=== PATIENT | female | born 1995 | race Caucasian/White ===

== ENCOUNTER 2021-01-30 08:19 | Outpatient (REF) | payer MEDICAID, SELFPAY ==
--- NOTE | ~2021-01-30 | US_ITS ---
EXAMINATION: US OBSTETRICAL ULTRASOUND CLINICAL INFORMATION: Irregular menses, size and dates. COMPARISON: None. LMP: 12/03/2020. Gestational age by maternal dates is 8 weeks 2 days. Estimated date of delivery by maternal dates is 09/09/2021. TECHNIQUE: Transabdominal imaging of pelvis is performed. FINDINGS: There is a single intrauterine gestational sac with visible yolk sac, embryo/fetus, and cardiac activity. There is a small subchorionic hemorrhage or hematoma. HR: 169 beats per minute. CRL (crown rump length): 2.07 cm corresponding to 8 weeks and 5 days). SHANTANU (estimated date of delivery): 09/06/2021 +/- 4 days. MATERNAL ADNEXA: The right maternal ovary measures 3.8 x 2.4 x 2.7 cm. It appears unremarkable. The left maternal ovary measures 2.9 x 1.5 x 2.1 cm. It appears unremarkable. There is no significant maternal adnexal mass. No maternal pelvic ascites. US/US OB <= 14 weeks fetus IMPRESSION: 1. Single intrauterine gestation with ultrasound gestational age of 8 weeks and 5 days +/- 4 days. 2. Estimated date of delivery is 09/06/2021 +/- 4 days. 3. No maternal adnexal mass or pelvic ascites. 4. There is a small subchorionic bleed measuring 1.0 cm in thickness.
== END 2021-01-30 08:20 | disposition home or self-care (01) ==
LOC: HO.US 08:19
PROVIDERS: Visit Provider Advanced Practice Midwife
DX: O26.841 Uterine size-date discrepancy, first trimester (principal); O26.891 Other specified pregnancy related conditions, first trimester; N92.6 Irregular menstruation, unspecified; Z3A.08 8 weeks gestation of pregnancy
CPT/HCPCS: 76801

== ENCOUNTER → 2021-02-23 10:08 | Outpatient (BNVA) | payer MEDICAID, SELFPAY | PROVIDERS: Visit Provider Advanced Practice Midwife | DX: Z13.89 Encounter for screening for other disorder (principal) | CPT/HCPCS: 99212 ==

== ENCOUNTER 2021-02-27 14:18 | Outpatient (REF) | payer OTHER, SELFPAY ==
--- NOTE | ~2021-02-27 | US_ITS ---
EXAMINATION: OBSTETRICAL ULTRASOUND, FIRST TRIMESTER HISTORY: 25-year-old at 12.2 weeks of gestation NT screening BMI 43.4 COMPARISON: 01/30/2021 TECHNIQUE: Real time transabdominal imaging with color and M-mode Doppler. FINDINGS: A single, live IUP CRL of 68 mm c/w 13.1wks is noted. Heart Rate: 150 beats per minute. Normal yolk sac seen. NT was 1.7.mm. NB Present The embryo appears sonographically wnl for this GA. Right ovary was within normal limits. The left ovary was not seen. GESTATIONAL AGE: 1. Established GA: 12.2 wks 2. GA from [facility]: 13.1 wks ESTIMATED DATE OF DELIVERY: 1. Established SHANTANU: 09/09/2021 2. SHANTANU from [facility]: 09/03/2021 US/US OB 1T nuc measure IMPRESSION: 1. A single live IUP 2. Size equals dates 3. NT of 1.7 mm MFM Consultation: I reviewed the ultrasound findings along with significance of NT measurement. The NT of less than 3mm is generally reassuring. However, the sensitivity for T21 detection is only 60%. I reviewed the availability of serum aneuploidy screening which includes cell-free DNA and placental protein based tests. I discussed the sensitivity, false-positive rate, and other limitations associated with each test. I also reviewed the availability of invasive diagnostic tests that are associated small but definite risk of miscarriage. We also reviewed the differences between screening tests and diagnostic tests. After our discussion, she opted for the First trimester screening that is based on cell-free DNA or non-invasive testing (NIPT). The result will be faxed to your office in approximately 7 days. A follow up at 18 weeks for survey has been scheduled. Thank you very much for this referral. Total time 30 minutes. The time spent was devoted to counseling the patient about the disease and diagnosis, coordinating care including reviewing her records, pertinent lab data and studies, as well as discussing diagnostic evaluation and workup, plan therapeutic interventions and future disposition of care. This includes any additional research needed to obtain further information in formulating the plan of care of this patient. This note was generated with a voice recognition program. Please excuse any errors which may have been overlooked during my review of this note. Sometimes these errors may affect the content or meaning of a given sentence.
== END 2021-02-27 14:19 | disposition home or self-care (01) ==
LOC: HO.US 14:18
PROVIDERS: Visit Provider Advanced Practice Midwife
DX: Z36.82 Encounter for antenatal screening for nuchal translucency (principal); Z34.90 Encounter for supervision of normal pregnancy, unspecified, unspecified trimester
CPT/HCPCS: 76813

== ENCOUNTER 2021-02-28 07:57 | Outpatient (REF) | payer OTHER, SELFPAY ==
[2021-02-28 09:09] LABS: MANUAL DIFF FLAG NO
[2021-02-28 09:17] LABS: Basophils Percent Auto 0.3 % (0-2); Eosinophils Absolute Auto 0.2 X10*3/uL (0.0-0.4); Eosinophils Percent Auto 1.8 % (0-4); Hematocrit 36.3 % (37-47); Hemoglobin 12.3 g/dl (12.0-16.0); Imm Gran Abs Auto 0.02 X10*3/uL (0.00-0.03); Imm Gran Pct Auto 0.2 % (0.0-0.4); Lymphocytes Absolute Auto 3.1 X10*3/uL (1.2-4.9); Lymphocytes Percent Auto 34.7 % (20-40); Mean Corpuscular HGB Conc 33.9 g/dl (31.0-35.0); Mean Corpuscular Hemoglobin 29.1 pg (27.0-33.0); Monocytes Absolute Auto 0.6 X10*3/uL (0.1-1.2); Monocytes Percent Auto 6.8 % (2-11); Neutrophils Absolute Auto 4.9 X10*3/uL (2.0-8.3); Neutrophils Percent Auto 56.2 % (45-73); Platelet Count 196 X10*3/uL (160-400); Red Blood Count 4.22 X10*6/uL (4.20-5.50); Red Cell Distribution Width 13.3 % (11.0-16.0); White Blood Count 8.8 X10*3/uL (4.8-10.8)
[2021-02-28 09:51] LABS: Glucose Fasting 83 mg/dL (60-99)
[2021-02-28 09:59] LABS: HIV AB/AG Nonreactive (Nonreactive); HIV Num 1 0.05 S/CO (0.00-0.99); ~HepC Num1 0.07 S/CO (0.00-0.79); ~Hepatitis C Antibody Nonreactive (Nonreactive)
[2021-02-28 10:23] LABS: Amphetamine Screen Urine Not Detected (Not Detect); Barbiturates, Urine Not Detected (Not Detect); Benzodiazepines Screen Urine Not Detected (Not Detect); Cannabinoid Screen Urine Not Detected (Not Detect); Cocaine Screen Urine Not Detected (Not Detect); Opiate Screen Urine Not Detected (Not Detect); Phencyclidine Screen Urine Not Detected (Not Detect)
[2021-02-28 10:30] LABS: Glucose 1 Hour 83 mg/dL
[2021-02-28 13:10] LABS: HBsAGNum1 0.21 S/CO (0.00-0.99); Hepatitis B Surface Antigen Negative (Negative)
[2021-03-01 06:07] LABS: Varicella IgG Antibody <135.00 index
[2021-03-02 08:08] LABS: Syphilis Screen Nonreactive (Nonreactive)
== END 2021-02-28 07:58 | disposition home or self-care (01) ==
LOC: HO.LAB 07:57
PROVIDERS: Visit Provider Advanced Practice Midwife
DX: Z34.90 Encounter for supervision of normal pregnancy, unspecified, unspecified trimester (principal)
CPT/HCPCS: 80307; 82951; 85025; 86762; 86780; 86787; 86803; 86850; 86900; 86901; 87086; 87340; 87389

== ENCOUNTER 2021-03-10 13:55 | Outpatient (REF) | payer OTHER, SELFPAY ==
[2021-03-11 08:23] LABS: BV Int Neg Control Negative (Negative); BV Int Pos Control Positive (Positive)
[2021-03-11 08:53] LABS: CT PCR NOT DETECTED (Not Detect.); NG PCR NOT DETECTED (Not Detect.)
== END 2021-03-10 13:56 | disposition home or self-care (01) ==
LOC: HO.LAB 13:55
PROVIDERS: Visit Provider Advanced Practice Midwife
DX: O99.211 Obesity complicating pregnancy, first trimester (principal); Z3A.13 13 weeks gestation of pregnancy; Z11.3 Encounter for screening for infections with a predominantly sexual mode of transmission
CPT/HCPCS: 87480; 87491; 87510; 87591; 87660; 99212

== ENCOUNTER 2021-04-03 12:54 | Outpatient (REF) | payer OTHER, SELFPAY ==
--- NOTE | ~2021-04-03 | US_ITS ---
EXAMINATION: US OBSTETRICAL CLINICAL INFORMATION: 25-year-old at the 17.2 weeks of gestation Screening for anomaly COMPARISON: 02/27/2021 TECHNIQUE: Real-time transabdominal ultrasound was performed using C1-5 megahertz transducer. FINDINGS: A single, active, fetus is seen in breech presentation. The placenta is posterior without previa, and the amniotic fluid volume is wnl. MEASUREMENTS: 1. Biparietal Diameter: 3.8 cm; 17.5 wks 2. Occipital Frontal Diameter: 5.3 cm 3. Head Circumference: 15.1 cm; 18.1 wks 4. Abdominal Circumference: 12.7 cm; 18.2 wks 5. Femur Length: 2.9 cm; 18.6 wks 6. Humerus Length: 2.6 cm; 18.2 wks 7. Tibia Length: 2.4 cm; 18.4 wks 8. Ulna Length: 2.5 cm; 19.2 wks 9. Lateral ventricle: 0.6 cm 10. Cerebellum: 1.7 cm; 17.6 wks 11. Cisterna Magna: 0.3 cm 12. Nuchal Fold: 4.7 mm 13. Heart Rate: 146 beats per minute Rt ovary: normal Lt ovary: normal Cervical length 4.0 cm on T/A. GESTATIONAL AGE: 1. Established GA: 17.2 wks 2. GA from [facility]: 18.2 wks ESTIMATED DATE OF DELIVERY: 1. Established SHANTANU: 09/09/2021 2. SHANTANU from [facility]: 09/02/2021 ANATOMY: The views of the face and cardiac anatomy were suboptimal due to position. The visualized anatomy includes but not limited to: 1. Cranium: Normal 2. Intracranial anatomy: cavum septum pellucidi, lateral ventricles, choroid plexus, cerebellum, posterior fossa, third and fourth ventricles. 3. face: The views of the profile, nasal bone, lip/palate were suboptimal due to position. 4. Heart: LVOT, RVOT, situs, aortic and ductal arches and diaphragm were within normal limits. Remainder of the cardiac anatomy was suboptimally seen 5. Diaphragm: Normal 6. Abdominal wall: Normal 7. Cord Insertion: Normal 8. Spine: Cervical, thoracic, lumbar, sacral. 9. Stomach: Normal size and shape 10. Right Kidney: Normal 11. Left Kidney: Normal 12. 3 vessel cord: Normal 13. Upper extremity: Open hands, fifth digit. 14. Lower extremity: Tibia, fibula, bilateral feet. 15. Bladder: Normal 16. Genitalia: Female, patient aware. US/US OB /maternal detail IMPRESSION: 1. Single, living, intrauterine with appropriate biometry. 2. Suboptimal anatomy survey due to position. No abnormalities were seen in visualized anatomy. DISCUSSION: I reviewed today's ultrasound findings. We discussed the limitations of ultrasound in diagnosing aneuploidy and other congenital abnormalities. I reviewed the differences between screening test and diagnostic test. Amniocentesis was discussed and declined. She was informed that the baseline incidence of congenital abnormalities is approximately 3-5%. Not all these conditions are diagnosable in utero. RECOMMENDATIONS: 1. Follow-up in approximately 3 weeks (scheduled) Thank you for allowing me to participate in her care. Total time 20 minutes. The time spent was devoted to counseling the patient about the disease and diagnosis, coordinating care including reviewing her records, pertinent lab data and studies, as well as discussing diagnostic evaluation and workup, plan therapeutic interventions and future disposition of care. This includes any additional research needed to obtain further information in formulating the plan of care of this patient. This note was generated with a voice recognition program. Please excuse any errors which may have been overlooked during my review of this note. Sometimes these errors may affect the content or meaning of a given sentence.
== END 2021-04-03 12:55 | disposition home or self-care (01) ==
LOC: HO.US 12:54
PROVIDERS: Visit Provider Advanced Practice Midwife
DX: Z36.3 Encounter for antenatal screening for malformations (principal)
CPT/HCPCS: 76811

== ENCOUNTER → 2021-04-07 10:22 | Outpatient (BNVA) | payer OTHER, SELFPAY | PROVIDERS: Visit Provider Obstetrics & Gynecology | DX: O99.212 Obesity complicating pregnancy, second trimester (principal); E66.9 Obesity, unspecified; Z3A.17 17 weeks gestation of pregnancy | CPT/HCPCS: 81003; 99212 ==

== ENCOUNTER 2021-04-17 09:08 | Outpatient (REF) | payer OTHER, SELFPAY ==
--- NOTE | ~2021-04-17 | US_ITS ---
EXAMINATION: OBSTETRICAL ULTRASOUND, Follow up HISTORY: 25-year-old at the 19.2 weeks of gestation Follow-up anatomy COMPARISON: 04/03/2021 TECHNIQUE: Real time transabdominal imaging with color and M-mode Doppler. PRESENTATION: Transverse PLACENTA LOCATION: Posterior without previa AMNIOTIC FLUID: Normal MEASUREMENTS: 1. Biparietal Diameter: 4.4 cm; 19.3 wks 2. Head Circumference: 17.5 cm; 20.0 wks 3. Abdominal Circumference: 13.6 cm; 19.1 wks 4. Femur Length: 3.1 cm; 19.5 wks 5. Heart Rate: 139 beats per minute WEIGHT: Estimated weight is 288 grams (0 lbs 10 oz) -- 50 %. Normal views of lateral cerebral ventricle, profile, nose/lips, 4ch view, LVOT, RVOT, aortic and ductal arches, 3 vessel trachea view, gender. GESTATIONAL AGE: 1. Established GA: 19.2 wks 2. GA from [facility]: 19.4 wks ESTIMATED DATE OF DELIVERY: 1. Established SHANTANU: 09/09/2021 2. SHANTANU from [facility]: 09/07/2021 US/US OB follow up IMPRESSION: 1. A single fetus with appropriate interval growth. 2. Previously limited views of the anatomy were seen as listed above. No abnormalities were noted in visualized anatomy. 3. This completes the survey. I reviewed the limitations of ultrasound in diagnosing aneuploidy and other congenital abnormalities. Amniocentesis was again reviewed and she declined. She was informed that the baseline instance of congenital abnormalities and defects in the general population is approximately 3-5%. Not all these conditions are diagnosable in utero. RECOMMENDATIONS: 1. f/u PRN Thank you very much for this referral. Total time 20 minutes. The time spent was devoted to counseling the patient about the disease and diagnosis, coordinating care including reviewing her records, pertinent lab data and studies, as well as discussing diagnostic evaluation and workup, plan therapeutic interventions and future disposition of care. This includes any additional research needed to obtain further information in formulating the plan of care of this patient. This note was generated with a voice recognition program. Please excuse any errors which may have been overlooked during my review of this note. Sometimes these errors may affect the content or meaning of a given sentence.
== END 2021-04-17 09:09 | disposition home or self-care (01) ==
LOC: HO.US 09:08
PROVIDERS: PCP Internal Medicine; Visit Provider Advanced Practice Midwife
DX: Z36.3 Encounter for antenatal screening for malformations (principal)
CPT/HCPCS: 76816

== ENCOUNTER → 2021-05-05 09:33 | Outpatient (BNVA) | payer OTHER, SELFPAY | PROVIDERS: PCP Internal Medicine; Visit Provider Advanced Practice Midwife | DX: O99.212 Obesity complicating pregnancy, second trimester (principal); E66.01 Morbid (severe) obesity due to excess calories; Z3A.21 21 weeks gestation of pregnancy | CPT/HCPCS: 81003; 99212 ==

== ENCOUNTER → 2021-06-02 10:19 | Outpatient (BNVA) | payer OTHER, SELFPAY | PROVIDERS: Visit Provider Advanced Practice Midwife | DX: O99.212 Obesity complicating pregnancy, second trimester (principal); E66.01 Morbid (severe) obesity due to excess calories; Z3A.25 25 weeks gestation of pregnancy | CPT/HCPCS: 81003; 99212 ==

== ENCOUNTER 2021-06-30 08:00 | Outpatient (REF) | payer OTHER, SELFPAY ==
[2021-06-30 09:55] LABS: Hematocrit 34.7 % (37-47); Hemoglobin 11.3 g/dl (12.0-16.0); Mean Corpuscular HGB Conc 32.6 g/dl (31.0-35.0); Mean Corpuscular Hemoglobin 29.2 pg (27.0-33.0); Mean Corpuscular Volume 89.7 fL (80-98); Mean Platelet Volume 11.2 fL (9.4-12.3); Platelet Count 253 X10*3/uL (160-400); Red Blood Count 3.87 X10*6/uL (4.20-5.50); Red Cell Distribution Width 12.5 % (11.0-16.0); White Blood Count 10.3 X10*3/uL (4.8-10.8)
[2021-06-30 10:09] LABS: Glucose 1 Hour PP 50gm Dose 102 mg/dL (60-140)
[2021-07-01 09:10] LABS: Syphilis Screen Nonreactive (Nonreactive)
== END 2021-06-30 08:01 | disposition home or self-care (01) ==
LOC: HO.LAB 08:00
PROVIDERS: Visit Provider Advanced Practice Midwife
DX: O99.212 Obesity complicating pregnancy, second trimester (principal)
CPT/HCPCS: 36415; 85027; 86780

== ENCOUNTER → 2021-07-08 14:58 | Outpatient (BNVA) | payer OTHER, SELFPAY | PROVIDERS: Visit Provider Advanced Practice Midwife | DX: O99.213 Obesity complicating pregnancy, third trimester (principal); E66.01 Morbid (severe) obesity due to excess calories; Z3A.31 31 weeks gestation of pregnancy | CPT/HCPCS: 81003; 99212 ==

== ENCOUNTER → 2021-07-21 08:03 | Outpatient (BNVA) | payer OTHER, SELFPAY | PROVIDERS: Visit Provider Advanced Practice Midwife | DX: O99.213 Obesity complicating pregnancy, third trimester (principal); E66.01 Morbid (severe) obesity due to excess calories; O36.63X0 Maternal care for excessive fetal growth, third trimester, not applicable or unspecified; Z3A.32 32 weeks gestation of pregnancy | CPT/HCPCS: 81003; 90471; 90715; 99212 ==

== ENCOUNTER 2021-07-31 08:08 | Outpatient (REF) | payer OTHER, SELFPAY ==
--- NOTE | ~2021-07-31 | US_ITS ---
EXAMINATION: OBSTETRICAL ULTRASOUND, Follow up HISTORY: 26-year-old at the 34.2 weeks of gestation Size date discrepancy COMPARISON: 04/17/2021 TECHNIQUE: Real time transabdominal imaging with color and M-mode Doppler. PRESENTATION: Vertex PLACENTA LOCATION: Posterior without previa AMNIOTIC FLUID: TADEO 12.2 cm MEASUREMENTS: 1. Biparietal Diameter: 8.1 cm; 32.5 wks 2. Head Circumference: 32.0 cm; 36.1 wks 3. Abdominal Circumference: 31.1 cm; 35.1 wks 4. Femur Length: 6.7 cm; 34.3 wks 5. Heart Rate: 136 beats per minute WEIGHT: EFW: 2498 grams (5 lbs 8 oz) -- 58 %. BIOPHYSICAL PROFILE: Motion: 2 Tone: 2 Breathin Amniotic Fluid: 2 Total score: 8/8 GESTATIONAL AGE: 1. Established GA: 34.2 wks 2. GA from [facility]: 34.5 wks ESTIMATED DATE OF DELIVERY: 1. Established SHANTANU: 09/09/2021 2. SHANTANU from [facility]: 09/06/2021 US/US OB follow up IMPRESSION: 1. A single active fetus is in vertex presentation 2. Size equals dates 3. Normal BPP score and TADEO Thank you very much for this referral. This note was generated with a voice recognition program. Please excuse any errors which may have been overlooked during my review of this note. Sometimes these errors may affect the content or meaning of a given sentence.
== END 2021-07-31 08:09 | disposition home or self-care (01) ==
LOC: HO.US 08:08
PROVIDERS: Visit Provider Advanced Practice Midwife
DX: O99.210 Obesity complicating pregnancy, unspecified trimester (principal); E66.01 Morbid (severe) obesity due to excess calories
CPT/HCPCS: 76816

== ENCOUNTER → 2021-08-11 08:05 | Outpatient (BNVA) | payer OTHER, SELFPAY | PROVIDERS: Visit Provider Advanced Practice Midwife | DX: O36.8330 Maternal care for abnormalities of the fetal heart rate or rhythm, third trimester, not applicable or unspecified (principal); Z3A.35 35 weeks gestation of pregnancy | CPT/HCPCS: 59025; 81003; 99212 ==

== ENCOUNTER 2021-08-11 09:26 | Outpatient (REF) | payer OTHER, SELFPAY ==
--- NOTE | ~2021-08-11 | US_ITS ---
EXAMINATION: US OBSTETRICAL (BIOPHYSICAL PROFILE) CLINICAL INFORMATION: Maternal careful or abnormality of the heart COMPARISON: Previous exams most recent 07/31/2021 TECHNIQUE: Ultrasound of the pelvis is performed. Biophysical profile is performed over 30 minutes with assessment of breathing, gross body movement, tone, and qualitative amniotic fluid volume. Each matrix is scored 0 or 2, depending if the metric is present. Maximum total score possible is 8. Examination is not intended to assess for anomalies. FINDINGS: POSITION: Cephalic PLACENTA: Posterior. Grade 2. AMNIOTIC FLUID INDEX: 14.2 cm CARDIAC ACTIVITY: 132 beats per minute BIOPHYSICAL PROFILE: Motion: 2 Tone: 2 Breathin Amniotic Fluid: 2 Total score: 8 US/US OB biophysical profile IMPRESSION: 1. Single intrauterine gestation in cephalic position with posterior placenta. 2. Total biophysical score is 8 (scale 0-8). 3. Amniotic fluid index 14.2 cm. 4. cardiac activity 132 beats per minute.
== END 2021-08-11 09:27 | disposition home or self-care (01) ==
LOC: HO.US 09:26
PROVIDERS: Visit Provider Advanced Practice Midwife
DX: O36.63X0 Maternal care for excessive fetal growth, third trimester, not applicable or unspecified (principal)
CPT/HCPCS: 59025; 76819; 81003; 99212

== ENCOUNTER 2021-08-14 09:31 | Outpatient (REF) | payer OTHER, SELFPAY ==
--- NOTE | ~2021-08-14 | US_ITS ---
EXAMINATION: US OBSTETRICAL (BIOPHYSICAL PROFILE) CLINICAL INFORMATION: A 26-year-old at the 36.2 weeks of gestation High BMI Size date discrepancy COMPARISON: 08/11/2021 TECHNIQUE: Biophysical profile is performed over 30 minutes with assessment of breathing, gross body movement, tone, and qualitative amniotic fluid volume. FINDINGS: POSITION: Cephalic PLACENTA: Posterior without previa AMNIOTIC FLUID INDEX: 7.9 cm, DVP: 5.7 cm CARDIAC ACTIVITY: 132 beats per minute BIOPHYSICAL PROFILE: Motion: 2 Tone: 2 Breathin Amniotic Fluid: 2 The total biophysical score is 8/8 US/US OB biophysical profile IMPRESSION: 1. Single intrauterine gestation in vertex position. 2. Reassuring BPP and TADEO Thank you for allowing me to participate in her care. This note was generated with a voice recognition program. Please excuse any errors which may have been overlooked during my review of this note. Sometimes these errors may affect the content or meaning of a given sentence.
== END 2021-08-14 09:32 | disposition home or self-care (01) ==
LOC: HO.US 09:31
PROVIDERS: Visit Provider Advanced Practice Midwife
DX: O36.63X0 Maternal care for excessive fetal growth, third trimester, not applicable or unspecified (principal); O99.213 Obesity complicating pregnancy, third trimester; E66.01 Morbid (severe) obesity due to excess calories; Z3A.35 35 weeks gestation of pregnancy
CPT/HCPCS: 76819

== ENCOUNTER 2021-08-18 08:42 | Outpatient (REF) | payer OTHER, SELFPAY ==
[2021-08-18 15:00] LABS: CT PCR NOT DETECTED (Not Detect.); NG PCR NOT DETECTED (Not Detect.)
== END 2021-08-18 08:43 | disposition home or self-care (01) ==
LOC: HO.LAB 08:42
PROVIDERS: Visit Provider Obstetrics & Gynecology
DX: O99.213 Obesity complicating pregnancy, third trimester (principal); E66.01 Morbid (severe) obesity due to excess calories; Z3A.36 36 weeks gestation of pregnancy
CPT/HCPCS: 59025; 87081; 87491; 87591; 99212

== ENCOUNTER 2021-08-21 09:44 | Outpatient (REF) | payer OTHER, SELFPAY ==
--- NOTE | ~2021-08-21 | US_ITS ---
EXAMINATION: OBSTETRICAL ULTRASOUND, Follow up HISTORY: A 26-year-old at the 37.2 weeks of gestation Size greater than dates High BMI COMPARISON: 08/14/2021 TECHNIQUE: Real time transabdominal imaging with color and M-mode Doppler. PRESENTATION: Vertex PLACENTA LOCATION: Posterior without previa AMNIOTIC FLUID: TADEO 9.5 cm MEASUREMENTS: 1. Biparietal Diameter: 8.6 cm; 34.4 wks 2. Head Circumference: 33.7 cm; 38.5 wks 3. Abdominal Circumference: 32.9 cm; 37.0 wks 4. Femur Length: 9.1 cm; 36.3 wks 5. Heart Rate: 127 beats per minute WEIGHT: EFW: 3000 grams (6 lbs 10 oz) -- 41 %. BIOPHYSICAL PROFILE: Motion: 2 Tone: 2 Breathin Amniotic Fluid: 2 Total score: 8/8 GESTATIONAL AGE: 1. Established GA: 37.2 wks 2. GA from [facility]: 36.5 wks ESTIMATED DATE OF DELIVERY: 1. Established SHANTANU: 09/09/2021 2. SHANTANU from [facility]: 09/13/2021 US/US OB follow up IMPRESSION: 1. A single active fetus is in vertex presentation 2. Size equals dates 3. Reassuring biophysical profile Thank you very much for this referral. This note was generated with a voice recognition program. Please excuse any errors which may have been overlooked during my review of this note. Sometimes these errors may affect the content or meaning of a given sentence.
== END 2021-08-21 09:45 | disposition home or self-care (01) ==
LOC: HO.US 09:44
PROVIDERS: Visit Provider Advanced Practice Midwife
DX: O36.63X0 Maternal care for excessive fetal growth, third trimester, not applicable or unspecified (principal); O99.213 Obesity complicating pregnancy, third trimester; E66.01 Morbid (severe) obesity due to excess calories; Z3A.37 37 weeks gestation of pregnancy
CPT/HCPCS: 59025; 76816; 81003; 99212

== ENCOUNTER → 2021-08-25 08:35 | Outpatient (BNVA) | payer OTHER, SELFPAY | PROVIDERS: Visit Provider Obstetrics & Gynecology | DX: Z34.83 Encounter for supervision of other normal pregnancy, third trimester (principal); Z3A.37 37 weeks gestation of pregnancy | CPT/HCPCS: 59025; 99212 ==

== ENCOUNTER → 2021-10-20 09:33 | Outpatient (BNVA) | payer OTHER, SELFPAY | PROVIDERS: Visit Provider Obstetrics & Gynecology | DX: Z39.2 Encounter for routine postpartum follow-up (principal); Z30.09 Encounter for other general counseling and advice on contraception | CPT/HCPCS: 99212 ==

== ENCOUNTER → 2021-10-21 11:34 | Outpatient (BNVA) | payer OTHER, SELFPAY | PROVIDERS: Visit Provider Obstetrics & Gynecology ==

== ENCOUNTER → 2022-01-04 08:42 | Outpatient (BNVA) | payer OTHER, SELFPAY | PROVIDERS: Visit Provider Obstetrics & Gynecology | DX: Z30.09 Encounter for other general counseling and advice on contraception (principal) | CPT/HCPCS: 11981; J7307 ==

== ENCOUNTER 2023-04-26 10:07 | Outpatient (REF) | payer OTHER, SELFPAY | END 2023-04-26 10:08 | disposition home or self-care (01) | LOC: HO.LNP 10:07 | PROVIDERS: Visit Provider Advanced Practice Midwife | DX: Z01.419 Encounter for gynecological examination (general) (routine) without abnormal findings (principal) | CPT/HCPCS: 88142 ==

== ENCOUNTER 2023-04-26 11:54 | Outpatient (REF) | payer OTHER, SELFPAY ==
[2023-04-26 12:34] LABS: Hematocrit 41.3 % (37.0-47.0); Hemoglobin 13.5 g/dl (12.0-16.0); Mean Corpuscular HGB Conc 32.7 g/dl (31.0-35.0); Mean Corpuscular Hemoglobin 29.3 pg (27.0-33.0); Mean Corpuscular Volume 89.8 fL (80.0-98.0); Mean Platelet Volume 11.6 fL (9.4-12.3); Platelet Count 244 X10*3/uL (160-400); Red Cell Distribution Width 12.7 % (11.0-16.0); White Blood Count 11.3 X10*3/uL (4.8-10.8)
[2023-04-26 13:01] LABS: Glucose Random 89 mg/dL (60-115)
[2023-04-26 13:22] LABS: Thyroid Stimulating Hormone 2.65 uIU/mL (0.32-4.0)
[2023-04-26 14:12] LABS: CT PCR NOT DETECTED (Not Detect.); NG PCR NOT DETECTED (Not Detect.)
[2023-04-27 04:51] LABS: Syphilis Screen Nonreactive (Nonreactive)
[2023-04-27 05:07] LABS: HBsAGNum1 0.37 S/CO (0.00-0.99); HIV AB/AG Nonreactive (Nonreactive); HIV Num 1 0.05 S/CO (0.00-0.99); Hepatitis B Surface Antigen Negative (Negative); ~HepC Num1 0.11 S/CO (0.00-0.79); ~Hepatitis C Antibody Nonreactive (Nonreactive)
[2023-04-27 12:37] LABS: BV Int Neg Control Negative (Negative); BV Int Pos Control Positive (Positive)
== END 2023-04-26 11:55 | disposition home or self-care (01) ==
LOC: HO.LAB 11:54
PROVIDERS: Visit Provider Advanced Practice Midwife
DX: Z11.3 Encounter for screening for infections with a predominantly sexual mode of transmission (principal); Z11.4 Encounter for screening for human immunodeficiency virus [HIV]; R60.0 Localized edema; E66.01 Morbid (severe) obesity due to excess calories; I10 Essential (primary) hypertension
CPT/HCPCS: 0353U; 82947; 84443; 85027; 86780; 86803; 87340; 87389; 87480; 87510; 87660

== ENCOUNTER → 2023-05-17 12:52 | Outpatient (BNVA) | payer OTHER, SELFPAY | PROVIDERS: Visit Provider Physician Assistant Surgical ==

== ENCOUNTER 2023-06-21 09:35 | Outpatient (REF) | payer OTHER, SELFPAY ==
[2023-06-24 10:12] LABS: H Pylori Breath Test Positive (Negative)
== END 2023-06-21 09:36 | disposition home or self-care (01) ==
LOC: HO.LNP 09:35
PROVIDERS: Visit Provider Physician Assistant Surgical
DX: E66.01 Morbid (severe) obesity due to excess calories (principal); R06.83 Snoring; Z11.0 Encounter for screening for intestinal infectious diseases; Z68.41 Body mass index [BMI] 40.0-44.9, adult
CPT/HCPCS: 83013; 99202; 99211

== ENCOUNTER 2023-06-21 09:35 | Outpatient (AMB) | payer OTHER, SELFPAY ==
--- NOTE | 2023-06-21 09:51 | MHC.OFFVISWM ---
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 She heard about our program from her WOOD MILLING MACHINE OPERATOR. Her goal is to lose weight and achieve a healthy lifestyle as well as to improve, if not resolve, obesity related medical conditions, including possible sleep apnea. She reports first being concerned about her weight after her youngest child, about two years ago, highest weight to date was 268. Current weight is 268.4 with a BMI of 43.3. She has tried multiple methods of weight loss including fad diets without permanent results. She lives with her daughters and spouse. She doies not currently work. She wakes at:?7 am, and goes to bed at?9 pm. Dinner is at 730 pm. Breakfast: yogurt and fruit AM snack: skip or granola bar Lunch: skip PM snack: stew or chicken, meat rice Dinner: cereal w milk After dinner: skip Other snacks: none Liquids: 80 oz water, no soda or juice Alcohol/marijuana/tobacco intake: none Exercise: outside walking, stationary bike at home, willing to join [employer] GERD score: 0 LINDA score: 1 ESS score: 18 QOL score: 88 [facility] Medical History Large for dates complicating in third trimester, antepartum Variable heart rate decelerations, antepartum Family History Mother No problems noted. Father No problems noted. Social History Household Members: Spouse and Children Alcohol intake: never Patient Tobacco Use Status: Never used Tobacco Agree to transfusion: Yes Female Reproductive History Menstrual Age of Menarche: 10 Review of Systems Const All systems reviewed & are unremarkable except as noted in HPI and below Physical Exam Const General: cooperative, healthy appearing and no acute distress Orientation/consciousness: patient oriented x3 HEENT Head: Yes normal to inspection Ears: hearing grossly normal bilaterally General nose exam: Normal external nose present Face and sinus: Yes normal facial exam Eyes General: appearance normal, both eyes and all related structures Resp Effort & Inspection: normal respiratory effort Auscultation: clear to auscultation bilaterally Cardio Rate: regular rate Rhythm: regular rhythm Heart sounds: S1 normal heart sound present and S2 normal heart sound present GI Inspection: Yes normal to inspection, No distended and Yes obesity Palpation (GI): Soft to palpation, nontender and no guarding Auscultation: normal bowel sounds Skin General skin exam: no rashes or lesions noted Neuro General: patient oriented x3 Extrem General: No edema Psych Appearance: grossly normal Mental Status: mental status grossly normal Speech and movement: Normal speech and movement present Affect: normal affect Attitude: cooperative Assessment & Plan Assessment & Plan (1) Morbid obesity: Code(s): E66.01 - Morbid (severe) obesity due to excess calories Plan: This is a?28 yo female who will start our SWL program to prepare for bariatric surgery.? Blood work, h pylori , CXR, ECG, Abd US and UGI have been ordered. She is being scheduled for RD and BH initial consultations. She will start SWL classes and watch the first three videos before her next appointment. ? Adequate sleep of 7-8 hours per night discussed, awakening at 7 am and going to bed around 9 pm ? You already have a body composition scale so be sure and check weight weekly. The best time to do this is first thing in the morning after going to the bathroom. 1. Nutritional counseling: Be sure to careful read the number of scoops per shake Start with 3 Premier Protein shakes ([employer], [employer], [employer]), (1 scoop in 8 oz low fat unsweetened almond milk or water each) First shake at 8am-10am, Second shake at 11am-1pm 1 protein bar (Zone Perfect bars at [employer], [facility], or [employer]) at 2pm-4pm. Another shake with 1 scoop in 8 oz unsweetened almond milk at 5pm-7pm. Dinner at 7pm (8 forks of protein and 8 forks of salad/vegetables). Meal to include lean meat (beef, fish, pork, turkey, chicken), cooked vegetables or a salad with olive oil and/or fruits (berries, pears, apples, kiwi). Avoid salt, breads, potatoes, rice, pasta, desserts. Another 1/2 bar (zone perfect) at 8pm-9pm. Try to drink 64 oz of water daily and avoid soda and juices. ?2. Each shake would be drunk slowly, like coffee in a period of 2 hours. ?3. Cut each bar in 4 pieces and eat each piece in 30 min ?to make each bar last 2 hours. ?4. I emphasized the importance of measuring accurately the food portion and measure it carefully when serving the food on the plate ?5. The meal portions include 8 full-size forks of meat and 8 full-size forks of salad. You always eat the meat portion but you can replace up to half of the forks of salad/vegetables with rice, potatoes or pasta, or a fruit ?if you like. The less you do it the better weight loss will be. ?6. One full-size fork is what can be scooped on the fork without falling aside and not what can be bit with the fork. Use regular forks like those you find in a typical restaurant. ?7.? Please send me weight measurements as soon as possible and then once a week. Always include your diet and exercise plan. Alternatively come weekly at the office for weight checks and send me the measurements. ?8. Exercise counseling: Begin by watching a stretching for beginners video. Start slowly and begin to stretch your muscles. You should do this before and after each exercise session to prevent injury. Please join [facility] gym. Ask the transportation solutions manager or one of the trainers how to use the machines if you are unfamiliar with them. Start elliptical with a resistance of 2. Increase resistance by 1 every 3 min to your most comfortable resistance with a max resistance of 8. Reduce the resistance by 1 every 3 minutes back down to 2 and repeat cycles for 300 calories. Alternatively, start treadmill with a speed of 3.0 and incline of 0, increasing incline by 1 every 3 minutes to the highest comfortable level (max 6 for now) then decrease in the same fashion. Repeat process to a goal of 300 calories. Goal of 2000 calories burned or more weekly. You may also consider use of the stationary bike at your house if it can track your calories burned. The easiest would be to chose the fat-burn or interval training program on the machine and do this until you reach the 300 calorie goal. Alternatively, you can manually adjust the resistance in a similar fashion as mentioned above, (resistance of 2-8 with a goal speed of 12 mph). Tracking calories is essential. 9. Alternatively start walking outside daily, tracking calories with a goal of 300 calories per day, daily. You can download the shari InferX which can track your time, distance and calories while walking outside. You press start in the shari when you start and then stop when you are finished. 10.? It is important to avoid for at least 18 months postoperatively and it has been discussed at the information session 11. Please get labs, EKG and chest X-Ray within 1 week. 12. Discussed and answered all questions regarding?obtained consent to participate in the [facility]?Registry. 13. Please follow the diet plan exactly, without any change. If you do not like something about the plan or you feel hungry, you need to communicate with me so I can help you revise the plan. You should not change the plan yourself. Text me at [phone] 14. Goal is to lose at least 12 pounds in the first month 15. Goal is to lose 10% of your weight before surgery, which is about 27 lbs. Ultimate weight goal: 241 lbs before surgery Patient is morbidly obese and is not considered stable at this time.?I spent a total of 70 minutes reviewing/updating records, examining the patient and counseling the patient on weight management as detailed above. (2) Snoring: Code(s): R06.83 - Snoring Plan: ESS 18, check home sleep study to r/o ALEXANDER Orders: Orders Vitamin B12 and Folate Today E66.01 - Morbid (severe) obesity due to excess calories, R06.83 - Snoring Comprehensive Met. Panel Today E66.01 - Morbid (severe) obesity due to excess calories, R06.83 - Snoring C Reactive Protein Today E66.01 - Morbid (severe) obesity due to excess calories, R06.83 - Snoring Ferritin Today E66.01 - Morbid (severe) obesity due to excess calories, R06.83 - Snoring Hemoglobin A1c Today E66.01 - Morbid (severe) obesity due to excess calories, R06.83 - Snoring Insulin Today E66.01 - Morbid (severe) obesity due to excess calories, R06.83 - Snoring IRON PROFILE Today E66.01 - Morbid (severe) obesity due to excess calories, R06.83 - Snoring Lipid Panel Today E66.01 - Morbid (severe) obesity due to excess calories, R06.83 - Snoring PTHI Today E66.01 - Morbid (severe) obesity due to excess calories, R06.83 - Snoring TSH reflex Free T4 Today E66.01 - Morbid (severe) obesity due to excess calories, R06.83 - Snoring Vitamin A Today E66.01 - Morbid (severe) obesity due to excess calories, R06.83 - Snoring Vitamin B1 Today E66.01 - Morbid (severe) obesity due to excess calories, R06.83 - Snoring Vitamin D 25-OH Total Today E66.01 - Morbid (severe) obesity due to excess calories, R06.83 - Snoring Zinc Today E66.01 - Morbid (severe) obesity due to excess calories, R06.83 - Snoring ECG 12 lead EKG Today E66.01 - Morbid (severe) obesity due to excess calories, R06.83 - Snoring FL upper GI w air Today E66.01 - Morbid (severe) obesity due to excess calories, R06.83 - Snoring Complete Blood Count Auto Diff Today E66.01 - Morbid (severe) obesity due to excess calories, R06.83 - Snoring RT home sleep study Today E66.01 - Morbid (severe) obesity due to excess calories, R06.83 - Snoring H Pylori Breath Test Today E66.01 - Morbid (severe) obesity due to excess calories, R06.83 - Snoring US abdomen comp w elastography Today E66.01 - Morbid (severe) obesity due to excess calories, R06.83 - Snoring XR chest 2V Today E66.01 - Morbid (severe) obesity due to excess calories, R06.83 - Snoring Referrals Behavioral Health Referral E66.01 - Morbid (severe) obesity due to excess calories, R06.83 - Snoring Nutrition/Dietitian Referral E66.01 - Morbid (severe) obesity due to excess calories, R06.83 - Snoring Coding Level of Care Code New Pt Level 5 (27447) Diagnoses Morbid obesity E66.01 Snoring R06.83 Time Spent (min) 70
[2023-06-21 10:00] VITALS: BP 119/67; PULSE 90; TEMP 35.9; O2SAT 97; BMI 43.3
== END 2023-06-21 10:32 | disposition home or self-care (01) ==
PROVIDERS: Visit Provider Physician Assistant Surgical
DX: E66.01 Morbid (severe) obesity due to excess calories (principal); Z68.41 Body mass index [BMI] 40.0-44.9, adult; R06.83 Snoring
CPT/HCPCS: 99205

== ENCOUNTER 2023-06-28 12:20 | Outpatient (REF) | payer OTHER, SELFPAY ==
--- NOTE | ~2023-06-28 | XR_ITS ---
EXAMINATION: XR CHEST 2 VIEWS CLINICAL INFORMATION: Morbid obesity. COMPARISON: None. TECHNIQUE: Frontal and lateral views of the chest were obtained. FINDINGS: The heart, great vessels, pulmonary vasculature and mediastinum are normal. The lungs show no focal infiltrate, effusion or pneumothorax. There is no acute osseous abnormality. XR/XR chest 2V IMPRESSION: No active cardiopulmonary disease.
--- NOTE | 2023-06-28 12:26 | ECG_ITS ---
Test Reason : E66.01 Blood Pressure : / mmHG Vent. Rate : 067 BPM Atrial Rate : 067 BPM P-R Int : 144 ms QRS Dur : 082 ms QT Int : 404 ms P-R-T Axes : 025 036 053 degrees QTc Int : 426 ms Normal sinus rhythm Normal ECG No previous ECGs available Referred By: Rico Lopes Electronically Signed By:Oc Perez
[2023-06-28 12:35] LABS: MANUAL DIFF FLAG NO
[2023-06-28 12:48] LABS: Basophils Absolute Auto 0.1 X10*3/uL (0.0-0.2); Basophils Percent Auto 0.5 % (0-2); Eosinophils Absolute Auto 0.2 X10*3/uL (0.0-0.4); Eosinophils Percent Auto 2.3 % (0-4); Hematocrit 41.2 % (37.0-47.0); Hemoglobin 13.7 g/dl (12.0-16.0); Imm Gran Abs Auto 0.02 X10*3/uL (0.00-0.03); Imm Gran Pct Auto 0.2 % (0.0-0.4); Lymphocytes Absolute Auto 4.1 X10*3/uL (1.2-4.9); Lymphocytes Percent Auto 39.9 % (20-40); Mean Corpuscular HGB Conc 33.3 g/dl (31.0-35.0); Mean Corpuscular Hemoglobin 29.5 pg (27.0-33.0); Mean Corpuscular Volume 88.6 fL (80.0-98.0); Mean Platelet Volume 11.7 fL (9.4-12.3); Monocytes Absolute Auto 0.5 X10*3/uL (0.1-1.2); Monocytes Percent Auto 4.6 % (2-11); Neutrophils Absolute Auto 5.3 x10*3/uL (2.0-8.3); Neutrophils Percent Auto 52.5 % (45-73); Platelet Count 240 X10*3/uL (160-400); Red Blood Count 4.65 X10*6/uL (4.20-5.50); Red Cell Distribution Width 12.9 % (11.0-16.0); White Blood Count 10.2 X10*3/uL (4.8-10.8)
[2023-06-28 13:21] LABS: Estimated Average Glucose 103 mg/dL; Hemoglobin A1c % 5.2 %
[2023-06-28 13:22] LABS: Alanine Aminotransferase 11 U/L (0-31); Albumin Level 4.1 g/dL (3.5-5.0); Alkaline Phosphatase 84 U/L (39-117); Anion Gap 10 (12-20); Aspartate Amino Transferase 13 U/L (5-31); Bilirubin Total 0.4 mg/dL (0.0-1.0); Blood Urea Nitrogen 13 mg/dL (9-16); C Reactive Protein 1.14 mg/dL (< or = 0.50); Carbon Dioxide 27 mmol/L (22-29); Chloride 108 mmol/L (96-108); Cholesterol 133 mg/dL; Estimated Glomerular Filt Rate > 60; Glucose Random 92 mg/dL (60-115); HDL Cholesterol 40 mg/dL; Iron 75 mcg/dL (30-160); LDL Cholesterol Calculated 86 mg/dl; Percent Iron Saturation 28 % (15-50); Potassium 4.1 mmol/L (3.3-5.1); Sodium 141 mmol/L (135-145); Total Iron Binding Capacity 272 mcg/dL (228-428); Total Protein 7.4 g/dL (6.5-8.0); Triglycerides 36 mg/dL; Unsaturated Iron Binding 197 ug/dL
[2023-06-28 13:54] LABS: Folate 12.4 ng/mL (> or = 4.0); Vitamin B12 362 pg/mL (200-900)
[2023-06-28 14:09] LABS: Ferritin 61 ng/mL (10-122); Insulin 12 uU/mL (2-29); TSH reflex Free T4 2.37 uIU/mL (0.32-4.0); Vitamin D 25-OH Total 14.7 ng/mL (>30)
[2023-06-30 22:09] LABS: Calcium (PTHI) 9.1 mg/dL (8.6-10.2); PTHI 71 pg/mL (16-77)
[2023-07-01 17:28] LABS: Zinc 80 mcg/dL (60-130)
[2023-07-04 05:23] LABS: Vitamin B1 12 nmol/L (8-30)
[2023-07-05 12:33] LABS: Vitamin A 35 mcg/dL (38-98)
== END 2023-06-28 12:21 | disposition home or self-care (01) ==
LOC: HO.XRAY 12:20
PROVIDERS: Visit Provider Physician Assistant Surgical
DX: E66.01 Morbid (severe) obesity due to excess calories (principal); R06.83 Snoring
CPT/HCPCS: 36415; 71046; 80053; 80061; 82306; 82607; 82728; 82746; 83036; 83525; 83540; 83970; 84425; 84443; 84590; 84630; 85025; 86140; 93005

== ENCOUNTER → 2023-06-28 12:26 | Outpatient (BNV) | payer OTHER, SELFPAY | PROVIDERS: Visit Provider Internal Medicine Cardiovascular Disease | DX: E66.01 Morbid (severe) obesity due to excess calories (principal) | CPT/HCPCS: 93010 ==

== ENCOUNTER → 2023-07-05 10:01 | Outpatient (BNVA) | payer OTHER, SELFPAY | PROVIDERS: Referring Provider Physician Assistant Surgical; Visit Provider Dietitian, Registered | DX: E66.9 Obesity, unspecified (principal); Z71.3 Dietary counseling and surveillance | CPT/HCPCS: 97802 ==

== ENCOUNTER 2023-07-26 10:22 | Outpatient (AMB) | payer OTHER, SELFPAY ==
--- NOTE | 2023-07-26 10:48 | A.OFFVIS_ITS ---
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 They were last seen in the office on 06/22/23, recorded weight at that time was 268.4 pounds, with a BMI of 43.3. Today's weight is 260 pounds and BMI is 42. There has been a weight loss of 8.4 pounds since initiating the surgical weight loss program on 06/22/23 with a total body weight loss of 3.1 %. Pre op work up completed as follows: SWL classes:? 02/26 BH appts: 06/29/23 ? ? RD appts: cleared 07/05/23 Labs: 06/28/23-low A, D, B12:362 H. pylori: 06/21/23-pos - pt did not want to take abx as she is breast feeding CXR: 06/28/23-nad EK06/28/23-nsr ABD U/S: 08/22/23 UGI: 08/22/23 The patient reports she is still . Current meal plan includes: 3 Premier Protein shakes ([employer], [employer], [employer]), (1 scoop in 8 oz low fat unsweetened almond milk or water each) First shake at 8am-10am, Second shake at 11am-1pm 1 protein bar (Zone Perfect bars at [employer], [facility], or [employer]) at 2pm-4pm. Another shake with 1 scoop in 8 oz unsweetened almond milk at 5pm-7pm. Dinner at 7pm (8 forks of protein and 8 forks of salad/vegetables). Another 1/2 bar (zone perfect) at 8pm-9pm. Drinking 64 oz of water Current exercise plan includes: walking and stationary bike, 300 calories, daily [facility] Medical History Large for dates complicating in third trimester, antepartum Variable heart rate decelerations, antepartum Family History (Reviewed 07/26/23 @ 11: by SHAKIR Cardoza) Mother No problems noted. Father No problems noted. Social History Household Members: Spouse and Children Alcohol intake: never Patient Tobacco Use Status: Never used Tobacco Agree to transfusion: Yes Female Reproductive History Menstrual Age of Menarche: 10 Review of Systems Const All systems reviewed & are unremarkable except as noted in HPI and below Physical Exam Vital Signs: Last Vital Signs Temp 97.1 F 07/26/23 11:01 Pulse 83 07/26/23 11:01 BP 123/77 07/26/23 11:01 Pulse Ox 97 07/26/23 11:01 Oxygen Delivery Method Room Air 07/26/23 11:01 BMI result Body Mass Index 42.0 Const General: healthy appearing and no acute distress Resp Effort & Inspection: normal respiratory effort Auscultation: clear to auscultation bilaterally Cardio Rate: regular rate Rhythm: regular rhythm GI Auscultation: normal bowel sounds Extrem General: Yes normal to inspection Assessment & Plan Assessment & Plan (1) Morbid obesity: Code(s): E66.01 - Morbid (severe) obesity due to excess calories Plan: change meal plan slightly 3 Premier Protein shakes ([employer], [employer], [employer]), (1 scoop in 8 oz low fat u nsweetened almond milk or water each) First shake at 8am-10am, Second shake at 11am-1pm 1 protein bar (Zone Perfect bars at [employer], [facility], or [employer]) at 2pm-4pm. Another shake with 1 scoop in 8 oz unsweetened almond milk at 5pm-7pm. Dinner at 7pm (8 forks of protein and 8 forks of salad/vegetables). Continue exercise rtc 3 weeks (2) H. pylori infection: Code(s): A04.8 - Other specified bacterial intestinal infections Plan: pt refuses tx at this time upon the advise of her animal control officer given that she is continuing to breastfeed Coding Level of Care Code Est Pt Level 3 (79160) Diagnoses Morbid obesity E66.01 H. pylori infection A04.8
[2023-07-26 11:01] VITALS: BP 123/77; PULSE 83; TEMP 36.2; O2SAT 97; BMI 42.0
== END 2023-07-26 11:41 | disposition home or self-care (01) ==
PROVIDERS: Visit Provider Physician Assistant Surgical
DX: E66.01 Morbid (severe) obesity due to excess calories (principal); Z68.42 Body mass index [BMI] 45.0-49.9, adult; A04.8 Other specified bacterial intestinal infections
CPT/HCPCS: 99213

== ENCOUNTER → 2023-07-26 10:22 | Outpatient (BNVA) | payer OTHER, SELFPAY | PROVIDERS: Visit Provider Physician Assistant Surgical | DX: E66.01 Morbid (severe) obesity due to excess calories (principal); Z68.41 Body mass index [BMI] 40.0-44.9, adult; A04.8 Other specified bacterial intestinal infections | CPT/HCPCS: 99212 ==

== ENCOUNTER 2024-06-27 21:53 | Emergency (ER) | payer MEDICAID, OTHER, SELFPAY ==
[2024-06-27 22:26] VITALS: PULSE 81; RESP 18; TEMP 36.4; O2SAT 99; BMI 39.2
[2024-06-27 22:30] VITALS: BP 112/70
== END 2024-06-28 04:48 | disposition left against medical advice (07) ==
PROVIDERS: Emergency Provider Emergency Medicine
DX: K08.89 Other specified disorders of teeth and supporting structures (principal); Z53.21 Procedure and treatment not carried out due to patient leaving prior to being seen by health care provider
CPT/HCPCS: 99281; 99282

== ENCOUNTER 2024-12-11 08:52 | Outpatient (AMB) | payer MEDICAID, SELFPAY ==
[2024-12-11 09:09] VITALS: BP 118/78; BMI 42.8
--- NOTE | 2024-12-11 09:09 | A.OFFVIS_ITS ---
Vital Signs 12/11/24 09:09 Height 5 ft 7 in Weight 273 lb BMI 42.8 BP 118/78 Intake Visit Reasons: control follow Mingler Operator Required: Yes Mingler Operator Language: Telegraph Messenger Services: Mingler Operator Present Mingler Operator Name: Troy,ID: [id number] Information Interpreted: clinical only Family Helper: Family Helper Present Allergies anesthesia Allergy (Intermediate, Uncoded 12/11/24 09:10) Hives Medication List - Last Reconciled 12/11/24 by Latasha Hunt CNM etonogestrel (Nexplanon) subdermal Is last menstrual period known: No (no menses,nexplanon) HPI HPI control follow : Details: Patient is here to discuss control she has a Nexplanon and has had it for 3 years she is very sure that she does not want to have anymore children and in fact she would like to have her tubes tied. She only put the Nexplanon in as a temporary measure to allow time to be very very certain but she in fact was very certain and put it in on our recommendations. She has her 2 children and with her partner who has 6 children in total they are very busy and they do not want anymore children and needed the if something happened with that relationship she would not want anymore children. In addition she is struggling with her weight and wants to work on that she was rejected from the bariatric program because her insurance did not cover it. She does not have a primary care provider and never has. [facility] Medical History Variable heart rate decelerations, antepartum Large for dates complicating in third trimester, antepartum Family History Mother No problems noted. Father No problems noted. Social History Household Members: Spouse and Children Alcohol intake: never Patient Tobacco Use Status: Never used Tobacco Agree to transfusion: Yes Female Reproductive History Menstrual Age of Menarche: 10 control method: implanted Total pregnancies: 2 Full term: 2 Date of last pap smear: 04/26/23 (negative) Physical Exam Vital Signs: Last Vital Signs BP 118/78 12/11/24 09:09 BMI result Body Mass Index 42.8 Const General: cooperative, healthy appearing, comfortable, no acute distress and well developed Nutritional Appearance: obese Assessment & Plan Assessment & Plan (1) Nexplanon in place: Code(s): Z97.5 - Presence of (intrauterine) contraceptive device Category: Social Hx (2) Obesity, morbid, BMI 40.0-49.9: Comment: Desires help with weight loss needs a primary care provider and start with basic metabolic assessments and then needs referral as appropriate... Code(s): E66.01 - Morbid (severe) obesity due to excess calories Category: Medical (3) control counseling: Comment: Desires permanent control method then removal of Nexplanon... Code(s): Z30.09 - Encounter for other general counseling and advice on contraception Category: Medical Plan I reviewed with the patient her concerns. She is very very certain that she has thought about things and she does not want to have anymore children she said she put in the Nexplanon as a temporary maneuver because she was counseled that she was perhaps young and should think about things before having her tubal ligation but she was very sure after the of her 3-year-old that she did not want anymore children she has the 2 with her partner and they have been together for 12 years but he has 6 children all together counting children from previous rel ationships. In addition she has struggled with her weight and had tried to get a referral to bariatric surgery but she was denied because of her insurance. In addition she does not have a primary care provider she has never been able to find 1. She would like to have a primary care provider Her last Pap smear in annual were here with me the Pap smear was negative. She is not due for Pap smear but she would be due for an annual hydrologic engineer visit. However her needs are more than that and she wants to have her tubes tied and the Nexplanon removed. I cautioned about having it removed before having her tubes tied so she does not have an unintended in an interim in case there would be a delay. I did tell her that if her menses return she should use a backup method such as condoms to prevent a into her room . Discussed that while it is supposed to be used for 3 years that many women are able to use it for longer, but a return to normal cycling or something approaching that would indicate reduced function and risk of . The next step is she needs to have a tubal ligation consultation with natural sciences department chair, and arrange to have the surgery, and thereafter I explained to her how I would remove the Nexplanon. Additionally she was given the number for the [facility] primary care offices and she is interested in calling them today to see if she can get an appointment with a primary care provider. I discussed with her that it would be important for her to have fasting blood work to check for pre diabetes and other possible metabolic issues and a full di scussion about her desire to lose weight and what would be the best recommended option for her given everything should take place with her soon to be future primary care provider I will see her for her hydrologic engineer needs. She is in agreement with this plan. the following are copied from the follow-up appointment requests needs annual exam miguel angel pagan Needs tubal ligation consult w SHIRLEY needs primary care provider/ discussio re wt loss options needs removal of nexplano miguel angel Pagan AFTER tubal ligation Coding Level of Care Code Est Pt Level 3 (08822) Diagnoses Nexplanon in place Z97.5 Obesity, morbid, BMI 40.0-49.9 E66.01 control counseling Z30.09
== END 2024-12-11 10:03 | disposition home or self-care (01) ==
PROVIDERS: Visit Provider Advanced Practice Midwife
DX: Z30.09 Encounter for other general counseling and advice on contraception (principal); E66.01 Morbid (severe) obesity due to excess calories; Z97.5 Presence of (intrauterine) contraceptive device
CPT/HCPCS: 99213

== ENCOUNTER → 2024-12-11 08:52 | Outpatient (BNVA) | payer MEDICAID, OTHER, SELFPAY | PROVIDERS: Visit Provider Advanced Practice Midwife | DX: E66.01 Morbid (severe) obesity due to excess calories (principal); Z30.09 Encounter for other general counseling and advice on contraception; Z97.5 Presence of (intrauterine) contraceptive device; Z68.41 Body mass index [BMI] 40.0-44.9, adult | CPT/HCPCS: 99212 ==